=== PATIENT | male | born 1965 | race Asian ===

== ENCOUNTER 2023-03-28 08:08 | Outpatient (CLI) | payer OTHER | END 2023-03-28 19:09 | disposition home or self-care (01) | LOC: CT 08:08 | PROVIDERS: ATTEND Family Medicine | DX: F17.210 Nicotine dependence, cigarettes, uncomplicated (principal); J41.0 Simple chronic bronchitis ==

== ENCOUNTER 2023-05-28 12:02 | Outpatient (CLI) | payer OTHER | END 2023-05-28 20:25 | disposition home or self-care (01) | LOC: RAD 12:02 | PROVIDERS: ATTEND Family Medicine | DX: M25.512 Pain in left shoulder (principal) ==